=== PATIENT | female | born 1945 | race Caucasian/White ===

== ENCOUNTER 2018-04-07 16:41 | Observation (INO) ==
--- NOTE | 2018-04-07 17:46 | XR ---
EXAM DATE: 04/07/2018 5:42 PM EDT AGE/SEX: 72 years / Female INDICATIONS: Chest pain. CLINICAL DATA: This is the patient's initial encounter. Patient reports that signs and symptoms have been present for 1 day and indicates a pain score of 6/10. MEDICAL/SURGICAL HISTORY: Deep venous thrombosis. None. COMPARISON: No prior exams available for comparison. FINDINGS: Single AP view of the chest. The lungs are clear. Cardiomediastinal silhouette within nor mal limits. No evidence of pleural effusion or pneumothorax. CONCLUSION: No acute cardiopulmonary disease identified. Electronically signed by: Matthew Guerra MD 04/07/2018 5:45 PM EDT
[2018-04-07 18:00] LABS: Baso % (Auto) 0.5 % (0.0-2.0); Eos # (Auto) 0.1 th/mm3 (0.0-0.4); Hematocrit 39.5 % (35.0-46.0); Hemoglobin 13.7 gm/dL (11.6-15.3); Lymph % (Auto) 29.8 % (9.0-44.0); Mean Corpuscular HGB Conc 34.7 % (32.0-36.0); Mean Corpuscular Hemoglobin 31.5 pg (27.0-34.0); Mean Corpuscular Volume 90.8 fL (80.0-100.0); Mean Platelet Volume 10.1 fL (7.0-11.0); Mono # (Auto) 0.7 th/mm3 (0.0-0.9); Mono % (Auto) 10.9 % (0.0-8.0); Neut # (Auto) 3.8 th/mm3 (1.8-7.7); Neut % (Auto) 56.8 % (16.0-70.0); Platelet Count 214 th/mm3 (150-450); Red Blood Count 4.35 mil/mm3 (4.00-5.30); Red Cell Distribution Width 13.7 % (11.6-17.2); White Blood Count 6.6 th/mm3 (4.0-11.0)
--- NOTE | 2018-04-07 18:01 | ED ---
HPI General Chief complaint: Chest Pain Stated complaint: Patient states chest pain Time Seen by Provider: 04/07/18 17:13 Source: patient and RN notes reviewed Mode of arrival: ambulatory History of Present Illness HPI narrative: 72yF presenting with chest pain. The patient states that she was diagnosed with a RLE DVT earlier this week (also has a history of DVT previously ) and was started on Eliquis. She says that approximately an hour prior to arrival, she was at rest when she began to have substernal chest pain which she describes as "sharp", non-radiating, intermittent, constant, not made better or worse by anything, associated with dyspnea. Denies fever, cough, palpitations, nausea or vomiting. Family history significant for father with DVT/ PE and mother with CAD and "cardiac aneurysm". Related Data Home Medications Medication Instructions Recorded Confirmed Thyroid (T4:T3) mcg PO DAILY 04/07/18 apixaban [Eliquis] 5 mg PO BID 04/07/18 04/07/18 sulfamethoxazole-trimethoprim 1 tab PO BID 04/07/18 04/07/18 Allergies Allergy/AdvReac Type Severity Reaction Status Date / Time cephalexin AdvReac Severe NAUSEA/VOMI Verified 04/05/18 18:17 TING codeine AdvReac Severe NAUSEA/VOMI Verified 04/05/18 18:17 TING morphine AdvReac Severe NAUSEA/VOMI Verified 04/05/18 18:17 TING Review of Systems ROS: all other systems reviewed are negative Constitutional Denies fever(s) Eyes Denies blurry vision ENT Denies nasal congestion Cardiovascular Reports chest pain Respiratory Denies cough Gastrointestinal Denies nausea Genitourinary Denies dysuria Musculoskeletal Denies back pain Neurologic Denies confusion Psychiatric Denies confusion PMFSH History History Provided By: Patient Medical History Medical History Wears glasses (Acute) History of hypothyroidism (Acute) Hx of blood clots (Acute) Hypothyroid (Acute) Surgical History Surgical History Hx of foot surgery (Acute) History of lumpectomy of right breast (Acute) History of (Acute) Hx of cholecystectomy (Acute) Hx of lumbosacral spine surgery (Acute) Hx of cosmetic plastic surgery (Acute) Hx of blepharoplasty (Acute) Social History Social History Substance History: No History of Abuse Second Hand Smoke Exposure: No Smoking Status: Former smoker How Often Do You Have a Drink Containing Alcohol: Monthly or less Immunization History Tetanus Immunization: Unsure Hx Influenza Vaccine This Season: Yes Exam Const General: healthy appearing and no acute distress HENMT Head: normocephalic and atraumatic Face and sinus: normal facial exam Eyes General: appearance normal, both eyes and all related structures Pupils: PERRL Chest Chest: normal inspection of the chest Resp Effort & Inspection: normal respiratory effort Auscultation: no rhonchi and no wheezes Other: Lungs clear to auscultation bilaterally Cardio Rate: regular rate Rhythm: regular rhythm GI Inspection: non-distended Palpation: soft and nontender Skin General: no rashes or lesions noted Neuro General: alert, awake, oriented x3 and no focal motor deficits Psych Affect: normal affect Course Initial Documented Vital Signs Temperature 97.2 F L 04/07/18 16:45 Pulse Rate 85 04/07/18 16:45 Blood Pressure 195/81 H 04/07/18 16:45 Pulse Oximetry 98 04/07/18 16:45 Last Documented Vital Signs Temperature 97.7 F 04/08/18 08:00 Pulse Rate 63 04/08/18 08:00 Respiratory Rate 16 04/08/18 08:00 Blood Pressure 143/63 H 04/08/18 08:00 Pulse Oximetry 95 04/08/18 08:25 Sign Out Sign Out Data: Patient Sign Out occurred on 04/07/18 at 19:24. Patient's care was discussed, and care was transferred from Tiffany Gill DO to Nichelle Everett MD. Sign Out Comment: Pending CTA chest and remaining labs Last updated by Tiffany Gill DO at 04/07/18 19:23 Post-Handoff Eval: The patient's case was checked out to me by . Please see her complete history and physical. The patient presented with a recent history of being diagnosed with a DVT. The patient was placed on Eliquis on Sunday. The patient presents today with chest pain. During the course of the patient's emergency department visit, the patient's history, examination, and differential diagnosis were reviewed with the patient. The patient was placed on a security monitor with oximetry and frequent blood pressure monitoring. The patient had IV access obtained and blood work sent for analysis. The patient's diagnostic evaluation is remarkable for CBC with a normal white count and normal hemoglobin, monocytosis at 10.9, PT 10, PTT 28.2, chest x-ray shows no acute abnormality., Chemistry was unremarkable, initial troponin I is less than 0.02, BNP is 39. CTA to rule out PE showed a somewhat limited study due to the degree of opacification of the pulmonary arteries diffusely due to timing of contrast bolus, however no central PE was noted. Old granulomatous disease was noted. The patient was agreeable with the plan to proceed with admission to the chest pain center for rule out serial cardiac enzyme protocol followed by consideration of stress testing. Medical Decision Making [facility] Narrative Medical decision making narrative: Assessment: 72yF presenting with chest pain and dyspnea Plan: EKG and monitor Labs CXR CTA chest Medical Screen Exam Complete: Yes Emergency Medical Condition: Yes Differential Diagnosis Differential Diagnosis: Differential diagnosis includes, but is not limited to: PE, ACS, pleuritis, pneumonia, bronchitis Lab Data Result diagrams: 04/07/18 17:10 04/07/18 18:50 Lab Results 04/07/18 04/07/18 04/07/18 Range/Units 17:10 17:10 17:10 WBC 6.6 (4.0-11.0) th/mm3 RBC 4.35 (4.00-5.30) mil/mm3 Hgb 13.7 (11.6-15.3) gm/dL Hct 39.5 (35.0-46.0) % MCV 90.8 (80.0-100.0) fL MCH 31.5 (27.0-34.0) pg MCHC 34.7 (32.0-36.0) % RDW 13.7 (11.6-17.2) % Plt Count 214 (150-450) th/mm3 MPV 10.1 (7.0-11.0) fL Neut % (Auto) 56.8 (16.0-70.0) % Lymph % (Auto) 29.8 (9.0-44.0) % [place] % (Auto) 10.9 H (0.0-8.0) % Eos % (Auto) 2.0 (0.0-4.0) % Baso % (Auto) 0.5 (0.0-2.0) % Neut # (Auto) 3.8 (1.8-7.7) th/mm3 Lymph # (Auto) 2.0 (1.0-4.8) th/mm3 [place] # (Auto) 0.7 (0.0-0.9) th/mm3 Eos # (Auto) 0.1 (0.0-0.4) th/mm3 Baso # (Auto) 0.0 (0.0-0.2) th/mm3 WBC Differential . Differential Comment Auto diff final PT 10.0 (9.8-11.6) sec INR 1.0 Ratio APTT 28.2 (24.3-30.1) sec Puncture Site Patient Temperature O2 Saturation (90-100) % ABG pH (7.380-7.420) ABG pCO2 (38-42) mmHg ABG pO2 (61-120) mmHg ABG HCO3 (22-26) mmol/L ABG O2 Content (12.0-20.0) Vol % ABG Base Excess (-2-2) mmol/L ABG Methemoglobin (0-2) % [place] Test Hemoglobin (12.0-16.0) G/DL Carboxyhemoglobin (0-4) % Inspired O2 % Critical Value Sodium (136-145) meq/L Potassium (3.5-5.1) meq/L Chloride (98-107) meq/L Carbon Dioxide (21.0-32.0) meq/L Anion Gap (5-15) meq/L BUN (7-18) mg/dL Creatinine (0.50-1.00) mg/dL Estimated GFR (>89) mL/min Random Glucose (74-106) mg/dL Calcium (8.5-10.1) mg/dL Magnesium (1.5-2.5) mg/dL Total Bilirubin (0.2-1.0) mg/dL AST (15-37) U/L ALT (10-53) U/L Alkaline Phosphatase (45-117) U/L Total Creatine Kinase (26-192) U/L Troponin I (0.02-0.05) ng/mL B-Natriuretic Peptide 39 (0-100) pg/mL Total Protein (6.4-8.2) g/dL Albumin (3.4-5.0) g/dL 04/07/18 04/07/18 04/07/18 Range/Units 18:50 20:35 23:50 WBC (4.0-11.0) th/mm3 RBC (4.00-5.30) mil/mm3 Hgb (11.6-15.3) gm/dL Hct (35.0-46.0) % MCV (80.0-100.0) fL MCH (27.0-34.0) pg MCHC (32.0-36.0) % RDW (11.6-17.2) % Plt Count (150-450) th/mm3 MPV (7.0-11.0) fL Neut % (Auto) (16.0-70.0) % Lymph % (Auto) (9.0-44.0) % [place] % (Auto) (0.0-8.0) % Eos % (Auto) (0.0-4.0) % Baso % (Auto) (0.0-2.0) % Neut # (Auto) (1.8-7.7) th/mm3 Lymph # (Auto) (1.0-4.8) th/mm3 [place] # (Auto) (0.0-0.9) th/mm3 Eos # (Auto) (0.0-0.4) th/mm3 Baso # (Auto) (0.0-0.2) th/mm3 WBC Differential Differential Comment PT (9.8-11.6) sec INR Ratio APTT (24.3-30.1) sec Puncture Site Patient Temperature O2 Saturation (90-100) % ABG pH (7.380-7.420) ABG pCO2 (38-42) mmHg ABG pO2 (61-120) mmHg ABG HCO3 (22-26) mmol/L ABG O2 Content (12.0-20.0) Vol % ABG Base Excess (-2-2) mmol/L ABG Methemoglobin (0-2) % [place] Test Hemoglobin (12.0-16.0) G/DL Carboxyhemoglobin (0-4) % Inspired O2 % Critical Value Sodium 142 (136-145) meq/L Potassium 4.0 (3.5-5.1) meq/L Chloride 109 H (98-107) meq/L Carbon Dioxide 20.4 L (21.0-32.0) meq/L Anion Gap 13 (5-15) meq/L BUN 14 (7-18) mg/dL Creatinine 0.95 (0.50-1.00) mg/dL Estimated GFR 58 L (>89) mL/min Random Glucose 76 (74-106) mg/dL Calcium 9.0 (8.5-10.1) mg/dL Magnesium 2.0 (1.5-2.5) mg/dL Total Bilirubin 0.3 (0.2-1.0) mg/dL AST 21 (15-37) U/L ALT 24 (10-53) U/L Alkaline Phosphatase 94 (45-117) U/L Total Creatine Kinase 115 (26-192) U/L Troponin I Less than 0.02 L Less than 0.02 L Less than 0.02 L (0.02-0.05) ng/mL B-Natriuretic Peptide (0-100) pg/mL Total Protein 6.9 (6.4-8.2) g/dL Albumin 3.4 (3.4-5.0) g/dL 04/08/18 Range/Units 08:08 WBC (4.0-11.0) th/mm3 RBC (4.00-5.30) mil/mm3 Hgb (11.6-15.3) gm/dL Hct (35.0-46.0) % MCV (80.0-100.0) fL MCH (27.0-34.0) pg MCHC (32.0-36.0) % RDW (11.6-17.2) % Plt Count (150-450) th/mm3 MPV (7.0-11.0) fL Neut % (Auto) (16.0-70.0) % Lymph % (Auto) (9.0-44.0) % [place] % (Auto) (0.0-8.0) % Eos % (Auto) (0.0-4.0) % Baso % (Auto) (0.0-2.0) % Neut # (Auto) (1.8-7.7) th/mm3 Lymph # (Auto) (1.0-4.8) th/mm3 [place] # (Auto) (0.0-0.9) th/mm3 Eos # (Auto) (0.0-0.4) th/mm3 Baso # (Auto) (0.0-0.2) th/mm3 WBC Differential Differential Comment PT (9.8-11.6) sec INR Ratio APTT (24.3-30.1) sec Puncture Site Left radial Patient Temperature 98.6 O2 Saturation 89 L* (90-100) % ABG pH 7.41 (7.380-7.420) ABG pCO2 35 L (38-42) mmHg ABG pO2 60 L (61-120) mmHg ABG HCO3 22 (22-26) mmol/L ABG O2 Content 16.5 (12.0-20.0) Vol % ABG Base Excess -2.0 (-2-2) mmol/L ABG Methemoglobin 1.0 (0-2) % [place] Test Present Hemoglobin 13.1 (12.0-16.0) G/DL Carboxyhemoglobin 1.1 (0-4) % Inspired O2 21 % Critical Value Yes Sodium (136-145) meq/L Potassium (3.5-5.1) meq/L Chloride (98-107) meq/L Carbon Dioxide (21.0-32.0) meq/L Anion Gap (5-15) meq/L BUN (7-18) mg/dL Creatinine (0.50-1.00) mg/dL Estimated GFR (>89) mL/min Random Glucose (74-106) mg/dL Calcium (8.5-10.1) mg/dL Magnesium (1.5-2.5) mg/dL Total Bilirubin (0.2-1.0) mg/dL AST (15-37) U/L ALT (10-53) U/L Alkaline Phosphatase (45-117) U/L Total Creatine Kinase (26-192) U/L Troponin I (0.02-0.05) ng/mL B-Natriuretic Peptide (0-100) pg/mL Total Protein (6.4-8.2) g/dL Albumin (3.4-5.0) g/dL Imaging Data Radiologist's impression: Chest X-Ray 04/07/18 17:22 CONCLUSION: No acute cardiopulmonary disease identified. Chest CTA 04/07/18 17:23 CONCLUSION: 1. Examination somewhat limited due to degree of opacification of the pulmonary arteries diffusely due to timing of contrast bolus. No central pulmonary embolus identified. 2. Old granulomatous disease. Pulmonary Perfusion Imaging 04/08/18 00:00 CONCLUSION: 1. Negative examination. ECG Data Attestation: I personally reviewed and interpreted this ECG as follows: Interpretation: Rate: 78 BPM Rhythm: Sinus [place]: Left Intervals: Normal intervals, no blocks, QTc 414 ms Q waves: III, aVF T waves: Upright, no inversions ST segments: No elevations or depressions Impression: Non-specific EKG, no significant changes as compared to EKG from 07/26. Discharge Plan Discharge Disposition Patient Disposition: 01 Discharge Home Discharge Condition Condition: Stable Discharge Order Discharge Orders: Discharge Order (Routine); Ordered 04/08/18 Ordered By: Chad Abernathy Physicians Team ED Provider: Nichelle Everett Primary Care Provider: Petra Winslow Attending Provider: Howard Floyd ED Status: Left Department Discharge Information Discharge Date/Time: 04/08/18 02:28
[2018-04-07 18:08] LABS: Activated Partial Thrombo Time 28.2 sec (24.3-30.1)
[2018-04-07 20:15] LABS: Albumin 3.4 g/dL (3.4-5.0); Anion Gap 13 meq/L (5-15); Aspartate Aminotransferase 21 U/L (15-37); Blood Urea Nitrogen 14 mg/dL (7-18); Carbon Dioxide 20.4 meq/L (21.0-32.0); Chloride 109 meq/L (98-107); Glomerular Filtration Rate 58 mL/min (>89); Glucose,Random 76 mg/dL (74-106); Sodium 142 meq/L (136-145)
[2018-04-07 20:16] LABS: Alanine Aminotransferase 24 U/L (10-53)
[2018-04-07 20:20] LABS: Alkaline Phosphatase 94 U/L (45-117); Total Protein 6.9 g/dL (6.4-8.2)
--- NOTE | 2018-04-07 22:56 | CT ---
EXAM DATE: 04/07/2018 10:34 PM EDT AGE/SEX: 72 years / Female INDICATIONS: Left sided chest pain. History of emboli. CLINICAL DATA: This is the patient's initial encounter. Patient reports that signs and symptoms have been present for 1 day and indicates a pain score of 0/10. MEDICAL/SURGICAL HISTORY: Deep venous thrombosis. Cholecystectomy. Coronary artery stent. RADIATION DOSE: 22.97 CTDI (mGy) COMPARISON: No prior exams available for comparison. TECHNIQUE: Volumetric scanning was performed using a multi-row detector CT scanner during bolus infu lilia of 50 ml Omnipaque 350 (iohexol) nonionic water-soluble contrast as a single exam dose. The blessing a was post processed with a variety of visualization algorithms including full volume maximum intensi ty projection and sliding thin slab reformation. Using automated exposure control and adjustment of the mA and/or kV according to patient size, radiation dose was kept as low as reasonably achievable t o obtain optimal diagnostic quality images. DICOM format image data is available electronically for review and comparison. FINDINGS: Pulmonary Arteries: Pulmonary artery opacification is less than that of the pulmonary veins, limitin g the evaluation for pulmonary embolus in the segmental and subsegmental branches. No central pulmona ry artery filling defect identified. Lung: Mild atelectasis at lung bases. Calcified granuloma in the lateral left lower lung. Effusion: None. Mediastinum: Calcified hilar lymph nodes on the left. No enlarged mediastinal lymph nodes. Thoracic aorta diameter within normal limits. Other: The axilla is unremarkable. CONCLUSION: 1. Examination somewhat limited due to degree of opacification of the pulmonary arteries diffusely d ue to timing of contrast bolus. No central pulmonary embolus identified. 2. Old granulomatous disease. Electronically signed by: Matthew Guerra MD 04/07/2018 10:54 PM EDT
[2018-04-08 00:25] LABS: Creatine Kinase 115 U/L (26-192)
[2018-04-08 02:54] VITALS: RESP 16
[2018-04-08 08:15] VITALS: BP 143/63; PULSE 63; TEMP 97.7; O2SAT 95
[2018-04-08] MEDS ORDERED: Sod Chloride 0.9% Inj 1,000 ML IV.CONT SCH (08:15)
[2018-04-08 08:28] LABS: ABG PCO2 35 mmHg (38-42); ABG PO2 60 mmHg (61-120)
--- NOTE | 2018-04-08 09:12 | P.HPCA ---
History of Present Illness Primary Care Physician: Petra Winslow MD Chief Complaint: Chest pain History of Present Illness: This is a 72-year-old lady with recent diagnosis of right lower extremity DVT and placed on Eliquis 3 days ago with also history of 2016 having DVT and bilateral PEs after having knee surgery and complete Eliquis therapy for 3 months that presents to ED with plan of chest discomfort. Patient describes left-sided chest discomfort that began yesterday and was a sharp comfort first lasting 12 minutes and then turned into more of annoying type of discomfort lasted about 3 hours. Denies shortness of breath, nausea, diaphoresis. States the symptoms are not worsened with deep breath. Denies history of CAD. States she has an appointment with county treasurer Dr. Lorenzo this afternoon for preop clearance for right knee surgery that is scheduled 04/17/18. Currently denies chest discomfort denies calf pain or swelling. Recently diagnosed of right lower extremity DVT. Prior history of DVT and bilateral PEs in 2016. Hypothyroidism. Denies hypertension, hyperlipidemia, diabetes, and known CAD. She states that her father had an aneurysm but really not sure of other cardiac issues. Patient quit smoking 47 years ago. - Diagnosis (1) Chest pain (2) Right leg DVT (3) History of pulmonary embolus (PE) (4) History of DVT (deep vein thrombosis) (5) Hypothyroidism Review of Systems General: Patient denies fevers, chills, and recent travel. HEENT: Patient denies headache, sore throat, difficulty swallowing. Cardiovascular: Has the chest discomfort as mentioned above. Denies sensation of heart beating rapidly or irregularly. No syncope. Respiratory: Denies shortness of breath or inspirational chest discomfort. Denies coughing wheezing or hemoptysis. GI: Patient denies nausea, vomiting, diarrhea, abdominal pain, bloody stools. Musculoskeletal: Patient denies joint pain or edema. Denies calf pain or edema. Neurovascular: Patient denies numbness, tingling, weakness in extremities. Denies headache. Endocrine: Denies polyuria and polydipsia. Hematologic: Denies easy bruising. Skin: Denies rash or itching. PMFSH - History History Provided By: Patient - Medical History Medical History: Medical History (Last Reviewed 04/07/18 @ 18:04 by Tiffany Gill DO) Wears glasses (Acute) History of hypothyroidism (Acute) Hx of blood clots (Acute) Hypothyroid - Surgical History Surgical History: Surgical History (Last Reviewed 04/07/18 @ 18:04 by Tiffany Gill DO) Hx of foot surgery (Acute) History of lumpectomy of right breast (Acute) History of (Acute) Hx of cholecystectomy (Acute) Hx of lumbosacral spine surgery (Acute) Hx of cosmetic plastic surgery (Acute) Hx of blepharoplasty (Acute) - Tobacco History Second Hand Smoke Exposure: No Smoking Status: Former smoker - Alcohol History How Often Do You Have a Drink Containing Alcohol: Monthly or less - Substance Use History Substance History: No History of Abuse - Travel History Recent Travel in the [place] Within the Last 8 Weeks: No Recent Travel Out of the Country Within the Last 8 Weeks: No - Immunization History Tetanus Immunization: Unsure Hx Influenza Vaccine This Season: Yes Medications and Allergies Active Medications: Active Medications Sodium Chloride (Ns Inj) 1,000 mls @ 80 mls/hr IV.CONT .[id number] NINO Sodium Chloride (Ns Flush) 2 ml IV.FLUSH UNSCH PRN PRN Reason: FLUSH AFTER USING IV ACCESS Sodium Chloride (Ns Flush) 2 ml IV.FLUSH BID NINO Sodium Chloride (Ns Flush) 2 ml IV.FLUSH PRN PRN PRN Reason: FLUSH AFTER USING IV ACCESS Allergies Allergy/AdvReac Type Severity Reaction Status Date / Time cephalexin AdvReac Severe NAUSEA/VOMI Verified 04/05/18 18:17 TING codeine AdvReac Severe NAUSEA/VOMI Verified 04/05/18 18:17 TING morphine AdvReac Severe NAUSEA/VOMI Verified 04/05/18 18:17 TING Home Medications Medication Instructions Recorded Confirmed Type Thyroid (T4:T3) mcg PO DAILY 04/07/18 History apixaban [Eliquis] 5 mg PO BID 04/07/18 04/07/18 History sulfamethoxazole-trimethoprim 1 tab PO BID 04/07/18 04/07/18 History Exam Vital signs: Vital Signs 04/07/18 16:45 04/07/18 17:14 04/07/18 17:22 Temperature 97.2 F L 98.1 F Pulse Rate 85 76 Respiratory Rate 16 16 Blood Pressure 195/81 H 124/59 L 124/59 L Pulse Oximetry 98 100 100 04/07/18 19:04 09/16/18 23:24 04/08/18 01:05 Temperature 98.2 F Pulse Rate 70 69 88 Respiratory Rate 20 18 20 Blood Pressure 135/61 120/59 L 122/72 Pulse Oximetry 98 96 04/08/18 02:52 04/08/18 03:07 04/08/18 08:00 Temperature 98.0 F 97.7 F Pulse Rate 67 69 63 Respiratory Rate 16 16 Blood Pressure 149/65 H 143/63 H Pulse Oximetry 96 95 04/08/18 08:25 Temperature Pulse Rate Respiratory Rate Blood Pressure Pulse Oximetry 95 Intake & Output 04/07/18 04/08/18 04/08/18 18:59 06:59 18:59 Output Total 120 / 120 Balance -120 / -120 Weight 100 kg 95.254 kg Output: Urine 120 / 120 Other: # Voids 1 Weight On Admission 95.254 kg Narrative: GENERAL: This is a well-nourished, well-developed patient, in no apparent distress. Patient speaks in clear complete sentences. Patient is pleasant. HEENT: Head is atraumatic and normocephalic. Neck is supple without lymphadenopathy and trachea is midline. No JVD or carotid bruits. CARDIOVASCULAR: Regular rate and rhythm without murmurs, gallops, or rubs. RESPIRATORY: Clear to auscultation. Breath sounds equal bilaterally. No wheezes , rales, or rhonchi. Chest wall is nontender. No use of accessory muscles. GASTROINTESTINAL: Abdomen is nontender, nondistended. Abdomen soft. No obvious pulsatile mass or bruit. No CVA tenderness. Strong femoral pulses bilaterally. Normal bowel sounds in all quadrants. MUSCULOSKELETAL: Patient is moving upper and lower extremities freely. No calf tenderness or edema, no Homans sign. Strong pulses in upper and lower extremities. NEUROLOGICAL: Patient is alert and oriented. Cranial nerves 2-12 are grossly intact. No focal deficits and speech is clear. SKIN: No rash and turgor is normal. Results 04/07/18 17:10 04/07/18 18:50 Cardiac Enzymes 04/07/18 04/07/18 04/07/18 Range/Units 17:10 18:50 20:35 AST 21 (15-37) U/L Troponin I Less than 0.02 L Less than 0.02 L (0.02-0.05) ng/mL B-Natriuretic Peptide 39 (0-100) pg/mL 04/07/18 Range/Units 23:50 AST (15-37) U/L Troponin I Less than 0.02 L (0.02-0.05) ng/mL B-Natriuretic Peptide (0-100) pg/mL Coagulation 04/07/18 04/07/18 Range/Units 17:10 17:10 PT 10.0 (9.8-11.6) sec APTT 28.2 (24.3-30.1) sec B-Natriuretic Peptide 39 (0-100) pg/mL CBC 04/07/18 Range/Units 17:10 WBC 6.6 (4.0-11.0) th/mm3 RBC 4.35 (4.00-5.30) mil/mm3 Hgb 13.7 (11.6-15.3) gm/dL Hct 39.5 (35.0-46.0) % Plt Count 214 (150-450) th/mm3 Neut # (Auto) 3.8 (1.8-7.7) th/mm3 Lymph # (Auto) 2.0 (1.0-4.8) th/mm3 Bullock # (Auto) 0.7 (0.0-0.9) th/mm3 Eos # (Auto) 0.1 (0.0-0.4) th/mm3 Baso # (Auto) 0.0 (0.0-0.2) th/mm3 Comprehensive Metabolic Panel 04/07/18 Range/Units 18:50 Sodium 142 (136-145) meq/L Potassium 4.0 (3.5-5.1) meq/L Chloride 109 H (98-107) meq/L Carbon Dioxide 20.4 L (21.0-32.0) meq/L BUN 14 (7-18) mg/dL Creatinine 0.95 (0.50-1.00) mg/dL Calcium 9.0 (8.5-10.1) mg/dL AST 21 (15-37) U/L ALT 24 (10-53) U/L Alkaline Phosphatase 94 (45-117) U/L Total Protein 6.9 (6.4-8.2) g/dL Albumin 3.4 (3.4-5.0) g/dL Intake and Output 04/07/18 04/08/18 04/08/18 22:59 06:59 14:59 Output Total 120 / 120 Balance -120 / -120 Output: Urine 120 / 120 Other: # Voids 1 Weight 100 kg 95.254 kg Weight On Admission 95.254 kg EKG interpretations - EKG EKG shows: sinus rhythm (EKGs are sinus rhythm with nonspecific lateral ST changes. Poor R-wave progression.) Caprini VTE Risk Assessment Caprini VTE Risk Assessment: Moderate/High Risk (score >= 2) Caprini Risk Assessment Model: Point Value = 1 Point Value = 2 Point Value = 3 Point Value = 5 Age 41-60 Minor surgery BMI > 25 kg/m2 Swollen legs Varicose veins or History of unexplained or recurrent spontaneous Oral contraceptives or hormone replacement Sepsis (< 1 month) Serious lung disease, including pneumonia (< 1 month) Abnormal pulmonary function Acute myocardial infarction Congestive heart failure (< 1 month) History of inflammatory bowel disease Medical patient at bed rest Age 61-74 Arthroscopic surgery Major open surgery (> 45 min) Laparoscopic surgery (> 45 min) Malignancy Confined to bed (> 72 hours) Immobilizing plaster cast Central venous access Age >= 75 History of VTE Family history of VTE Factor V Leiden Prothrombin [id number] Lupus anticoagulant Anticardiolipin antibodies Elevated serum homocysteine Heparin-induced thrombocytopenia Other congenital or acquired thrombophilia Stroke (< 1 month) Elective arthroplasty Hip, pelvis, or leg fracture Acute spinal cord injury (< 1 month) Prophylaxis Regimen: Total Risk Factor Score Risk Level Prophylaxis Regimen 0-1 Low Early ambulation 2 Moderate Order ONE of the following: *Sequential Compression Device (SCD) *Heparin 5000 units SQ BID 3-4 Higher Order ONE of the following medications: *Heparin 5000 units SQ TID *Enoxaparin/Lovenox 40 mg SQ daily (WT < 150 kg, CrCl > 30 mL/min) *Enoxaparin/Lovenox 30 mg SQ daily (WT < 150 kg, CrCl > 10-29 mL/min) *Enoxaparin/Lovenox 30 mg SQ BID (WT < 150 kg, CrCl > 30 mL/min) AND/OR *Sequential Compression Device (SCD) 5 or more Highest Order ONE of the following medications: *Heparin 5000 units SQ TID (Preferred with Epidurals) *Enoxaparin/Lovenox 40 mg SQ daily (WT < 150 kg, CrCl > 30 mL/min) *Enoxaparin/Lovenox 30 mg SQ daily (WT < 150 kg, CrCl > 10-29 mL/min) *Enoxaparin/Lovenox 30 mg SQ BID (WT < 150 kg, CrCl > 30 mL/min) AND *Sequential Compression Device (SCD) Assessment and Plan - Assessment (1) Chest pain Code(s): R07.9 - Chest pain, unspecified Status: Acute (2) Right leg DVT Code(s): I82.401 - Acute embolism and thrombosis of unspecified deep veins of right lower extremity Status: Acute (3) History of pulmonary embolus (PE) Code(s): Z86.711 - Personal history of pulmonary embolism Status: Acute (4) History of DVT (deep vein thrombosis) Code(s): Z86.718 - Personal history of other venous thrombosis and embolism Status: Acute (5) Hypothyroidism Code(s): E03.9 - Hypothyroidism, unspecified Status: Acute - Plan * Chest pain: Patient had serial cardiac enzymes and EKGs for ruling out purposes. Does not sound cardiac at this time. More worrisome of pulmonary embolism. Patient has been on Eliquis for 3 days. CTA obtained in the ED was limited secondary to contrast timing per the radiology report, was able to exclude central pulmonary emboli. Patient has been seen by Dr. Luiz Tovar of cardiology in the chest pain center. Initially requested CTA to be repeated however technical sales support specialist for me that radiologist has requested to have a VQ scan done instead of the CTA. This will be ordered and plan pending the results of this. ABG has room air O2 saturation 89% and PO2 of 60. She given oxygen. Patient discussed with Dr. Luiz Tovar. Awaiting results of VQ scan. Continue Eliquis. Patient should follow back with county treasurer Dr. Lorenzo. Should have outpatient echo performed. * Recent diagnosis of right lower extremity DVT: Continue Eliquis. Patient is stable at this time. She is agreeable to this plan. VQ scan was read by radiologist as negative examination. Patient ambulated around the F pod for 2 times on room air and saturations on pulse oximetry stayed steady at 96%. This information discussed with Dr. Luiz Tovar and patient will be discharged home at this time with instructions to follow-up with her PCP and follow-up with county treasurer for outpatient 2D echo. Return to ED for interval issues. H&P: Quality - VTE Deep Vein Thrombosis/Pulmonary Embolism Present on Admission: Yes
--- NOTE | 2018-04-08 11:56 | NM ---
EXAM DATE: 04/08/2018 11:46 AM EDT AGE/SEX: 72 years / Female INDICATIONS: Chest pain. CLINICAL DATA: This is the patient's initial encounter. Patient reports that signs and symptoms have been present for 1 day and indicates a pain score of 2/10. MEDICAL/SURGICAL HISTORY: Hypothyroidism. Carcinoma, breast. section. Mastectomy, ri ght. Cholecystectomy. COMPARISON: No prior exams available for comparison. DOSE: 8.1 mCi Tc99m MAA IV 1.3 mCi Tc99m DTPA aerosol TECHNIQUE: Following five minutes of tidal breathing of DTPA aerosol, planar images of the lungs wer e performed in eight projections. The patient was then injected with MAA, and eight-view perfusion s can was performed. FINDINGS: There is a homogeneous pattern of aerosol delivery to the periphery of both lungs. No focal ventilat ory defects are seen. The perfusion lung scan demonstrates a homogenous pattern of uptake in both lungs. No segmental or s ubsegmental defects are seen. CONCLUSION: 1. Negative examination. Electronically signed by: Dell Garces MD 04/08/2018 11:55 AM EDT
--- NOTE | 2018-04-09 16:56 | ECG ---
Date Performed: 04/07/2018 Time Performed: 17:01:08 PTAGE: 72 years EKG: Sinus rhythm LEFT VENTRICULAR HYPERTROPHY AND ST-T CHANGE POSSIBLE ANTERIOR MYOCARDIAL INFARCTION ABNORMAL ECG Co mpared to PREVIOUS TRACING , new possible [place] PREVIOUS TRACIN07/26/2010 16.15 DOCTOR: Annette Aguirre Interpretating Date/Time 04/09/2018 16:55:07
--- NOTE | 2018-04-09 16:56 | ECG ---
Date Performed: 04/07/2018 Time Performed: 20:40:52 PTAGE: 72 years EKG: Sinus rhythm LOW QRS VOLTAGE IN PRECORDIAL LEADS MINIMAL ST DEPRESSION BORDERLINE ECG Since PREVIOUS TRACING , no significant change noted PREVIOUS TRACIN04/07/2018 17.01 DOCTOR: Annette Aguirre Interpretating Date/Time 04/09/2018 16:55:36
--- NOTE | 2018-04-09 16:57 | ECG ---
Date Performed: 04/07/2018 Time Performed: 23:53:29 PTAGE: 72 years EKG: SINUS BRADYCARDIA LOW QRS VOLTAGE IN PRECORDIAL LEADS MODERATE ST DEPRESSION ABNORMAL ECG S devante PREVIOUS TRACING , no significant change noted PREVIOUS TRACIN04/07/2018 20.40 DOCTOR: Annette Aguirre Interpretating Date/Time 04/09/2018 16:55:50
== END 2018-04-08 13:36 | disposition home or self-care (01) ==
LOC: NEDA 16:41 → NEPE 16:41 → NEDA 04-08 02:28 → NEPFCDU 04-08 02:34

== ENCOUNTER 2018-04-17 08:42 | Inpatient (IN) ==
[2018-04-17] MEDS ORDERED: Sodium Chlor 0.9% Inj 250 ML ONE (09:28)
[2018-04-17] MEDS ORDERED: Dexamethasone Inj 20 MG/5 ML Vial ONE (09:28)
[2018-04-17] MEDS ORDERED: Bupivacaine Liposomal PF 1.3% Inj 20 ML Vial ONE (09:38)
[2018-04-17] MEDS ORDERED: Chlorhexidine Gluconate 2% 1 Pack (2 Cloths) TOPICAL ONE (09:39)
[2018-04-17] MEDS ORDERED: Metoprolol Tartrate 25 MG Tablet PO ONE (09:39)
[2018-04-17] MEDS ORDERED: Dexamethasone Inj 20 MG/5 ML Vial IV.PUSH ONE (09:40)
[2018-04-17] MEDS ORDERED: ceFAZolin 2 GM Premix Inj 2 GM/50 ML PIGGYBACK IV.SIG ONE (09:42)
[2018-04-17] MEDS ORDERED: Chlorhexidine 4% Topical 120 APPLIC/120 ML Bottle TOPICAL SCH (09:45)
[2018-04-17] MEDS ORDERED: Sodium Chlor 0.9% Inj 73.07 ML, Ropivacaine 0.5% PF Inj 24.63 ML, Ketorolac Inj 30 MG, ... P-ARTICULR SCH ×5 (09:45)
[2018-04-17] MEDS ORDERED: Sodium Chlor 0.9% Inj 500 ML IV.SIG SCH (10:00)
[2018-04-17] MEDS ORDERED: ceFAZolin 2 GM Premix Inj 2 GM/50 ML PIGGYBACK IV.SIG SCH (10:00)
[2018-04-17] MEDS ORDERED: SODIUM CHLOR 0.9% IV.SIG SCH (10:00)
[2018-04-17] MEDS ORDERED: TRANEXAMIC ACID IV.SIG SCH (10:00)
[2018-04-17] MEDS ORDERED: Vancomycin Inj 1,000 MG in Sodium Chlor 0.9% Inj 250 ML IV.SIG SCH (10:00)
[2018-04-17] MEDS ORDERED: fentaNYL Citrate Inj 250 MCG/5 ML Ampul ONE (10:43)
[2018-04-17] MEDS ORDERED: Lidocaine PF 1% Inj 5 ML Syringe OTHER ONE (11:45)
[2018-04-17] MEDS ORDERED: Bisacodyl 10 MG Supp RECTAL PRN (13:22)
[2018-04-17] MEDS ORDERED: Post-op Orders (for Pharmacy) OTHER STA (13:22)
[2018-04-17] MEDS ORDERED: HYDROmorphone PF Inj 1 MG/ML Ampul IV.PUSH PRN (13:22)
[2018-04-17] MEDS ORDERED: Aluminum/Magnesium/Simethacone Susp 30 ML UDC PO PRN (13:22)
--- NOTE | 2018-04-17 13:27 | P.OP ---
Preoperative Diagnosis: Right knee severe arthritis Postoperative Diagnosis: Same Date of procedure: 04/17/18 Procedure: Right total knee arthroplasty Anesthesia: [facility], [facility] Surgeon: Josue Jones MD Agricultural Education Instructor: JULISA Barreto The surgical procedure was assisted by my Advanced Registered Nurse Practitioner. My BUSINESS SYSTEMS ADMINISTRATOR presence was necessary throughout this case for the manipulation and positioning of the surgical extremity. My BUSINESS SYSTEMS ADMINISTRATOR was assisting me throughout the duration of this procedure. The skill set of an Advance Registered Nurse Practitioner was medically necessary to complete this procedure. During the surgical case, the surgical services asst was working at the back table and the Advance Registered Nurse Practitioner was directly assisting me. Operation and Findings: IMPLANTS: DePuy Attune: Patella: size 32. Femur, posterior stabilized size 6 narrow. Tibia, rotating platform size 5. Tibial insert, rotating platform, posterior stabilized size 6 mm thickness. ESTIMATED BLOOD LOSS: 100 cc TOURNIQUET TIME: 35 minutes at 250 mmHg pressure. JUSTIFICATION FOR PROCEDURE: The patient has end-stage osteoarthritis to the knee. There is an attached conservative measures pathway form in the chart that describes the nonoperative measures that were undertaken prior to consideration of surgical management. The patient understood the risks and benefits of surgical management. See my office notes for further details PROCEDURE: The patient was brought back to the operative theatre. Adequate anesthesia was obtained. The patient received intravenous vancomycin and Ancef. Note that the anesthesiologist told me that she did not have any reaction with the Ancef. The lower extremity was prepped and draped in the usual sterile fashion.The leg was exsanguinated, the tourniquet was raised. A standard anterior incision was performed followed by medial parapatellar arthrotomy was performed. End-stage arthritis was identified. Osteotomy of the patella was performed. We drilled holes for the patella. We trialed the patella component. We placed an intramedullary guide into the distal femur. We ultimately resected 14 mm off of the distal femur in 5 degrees of valgus. The remnants of the ACL and PCL were resected. Osteotomy of the proximal tibia was performed, resecting 5 mm off of the medial side. This was done with 3 degrees of posterior slope using an extramedullary guide. The distal end of the guide was placed in the mid aspect of the ankle. The femur was sized, and four chamfer cuts were completed in 3 of external rotation. We then cut the central box in the distal femur to replace the PCL. We resected the remnants of the menisci and removed osteophytes off of the femur and tibia. We then trialed the knee. We punched the tibia for the keel, and then used standard technique to cement in components. Excess cement was removed. We trialed the knee again and the final polyethylene thickness was chosen to provide extension to 0 degrees, and flexion of 140 degrees to gravity. The ligaments were appropriately balanced. Lateral release was necessary to obtain excellent patellofemoral tracking. The tourniquet was released and adequate hemostasis was obtained. An intra- articular injection of a ropivacaine cocktail was injected. The posterior knee was inspected for excess cement, which was removed. The final polyethylene was put into position after thorough irrigation. We then closed deep fascia with a #2 Stratafix followed by skin with 2-0 Vicryl followed by Dermabond dressing. Postop plan is to weight-bear as tolerated. DVT prophylaxis will be performed with SCDs, VIKTORIYA hose, early mobilization, and Lovenox for 4 weeks and then after that is completed aspirin for 4 weeks. This was confirmed with water pump servicer due to history of chronic DVT.
[2018-04-17] MEDS: Sod Chloride 0.9% Inj 1,000 ML IV.CONT SCH (14:00)
--- NOTE | 2018-04-17 14:08 | P.DCO ---
- Physical Therapy Physical Therapy: Gait training, Transfer training, bed to chair Knee: Total knee Right Lower Extremity Weight Bearing: Weight bearing as tolerated Right Lower Extremity Range of Motion: Active ROM - Nursing Nursing: Hu hester Dressing changes: Do not change dressing Additional instructions: First dressing change in the office - Certification Need for Home Health services: I have seen patient Francoise Kc on 04/17/18. My clinical findings support the need for the requested home health care services because: Need for Home Health Services: Limited ability to care for self, High risk of falls Homebound Certification: I certify that my clinical findings support that this patient is homebound because: Homebound Certification: Post-op weakness, Unsteady gait/balance
[2018-04-17] MEDS ORDERED: *Meperidine Inj 25 MG/ML Vial PERIprocedural Use ONLY ONE ×2 (14:16→15:28)
--- NOTE | 2018-04-17 14:23 | XR ---
EXAM DATE: 04/17/2018 1:21 PM EDT AGE/SEX: 72 years / Female INDICATIONS: Post op total right knee arthroplasty. CLINICAL DATA: This is the patient's initial encounter. Patient reports that signs and symptoms have been present for 1 day and indicates a pain score of Nonresponsive. MEDICAL/SURGICAL HISTORY: None. None. COMPARISON: No prior exams available for comparison. FINDINGS: Right knee arthroplasty components are in anatomic alignment and well positioned. No significant bony fracture. Immediate postoperative soft tissue changes are noted. CONCLUSION: 1. Status post right knee arthroplasty in anatomic alignment without acute fracture. Electronically signed by: Chas Price MD 04/17/2018 2:22 PM EDT
[2018-04-17] MEDS ORDERED: TRANEXAMIC ACID IV.SIG ONE (14:50)
[2018-04-17] MEDS ORDERED: SODIUM CHLOR 0.9% IV.SIG ONE (14:50)
[2018-04-17] MEDS: Multivitamin/Minerals Therapeutic Tablet PO SCH (20:24)
[2018-04-17] MEDS: Senna/Docusate Sodium 8.6/50 MG Tablet PO SCH (20:24)
[2018-04-17] MEDS ORDERED: Zolpidem Tartrate 5 MG Tablet PO PRN (21:00)
[2018-04-18] MEDS: Sod Chloride 0.9% Inj 1,000 ML IV.CONT SCH ×2 (04:02→13:44)
[2018-04-18 06:53] LABS: Hematocrit 30.9 % (35.0-46.0); Hemoglobin 10.7 gm/dL (11.6-15.3)
--- NOTE | 2018-04-18 07:39 | P.PNOP ---
Subjective Interval history: Patient is resting comfortably in bed in no acute distress. The patient reports minimal pain to the right knee. The patient states she has been ambulatory. Physical Exam Vital signs: Vital Signs 04/17/18 09:35 04/17/18 09:41 04/17/18 13:44 Temperature 98.3 F 97.6 F Pulse Rate 63 61 85 Respiratory Rate 20 17 Blood Pressure 131/59 L 145/67 H Pulse Oximetry 97 98 04/17/18 13:45 04/17/18 14:00 04/17/18 14:15 Temperature Pulse Rate 83 83 70 Respiratory Rate 16 9 L 11 L Blood Pressure 139/63 150/70 H 142/69 H Pulse Oximetry 97 97 97 04/17/18 14:30 04/17/18 14:45 04/17/18 15:00 Temperature Pulse Rate 69 67 68 Respiratory Rate 11 L 12 13 Blood Pressure 143/64 H 140/63 136/63 Pulse Oximetry 98 97 96 04/17/18 15:15 04/17/18 15:30 04/17/18 15:45 Temperature 97.2 F L Pulse Rate 67 66 67 Respiratory Rate 11 L 15 15 Blood Pressure 138/65 162/70 H 152/70 H Pulse Oximetry 93 L 95 95 04/17/18 16:00 04/17/18 20:00 04/17/18 22:58 Temperature 97.5 F L 97.5 F L Pulse Rate 63 77 Respiratory Rate 16 17 17 Blood Pressure 143/66 H 128/59 L Pulse Oximetry 96 95 04/18/18 00:00 04/18/18 01:11 04/18/18 04:00 Temperature 98.5 F 97.9 F Pulse Rate 66 65 Respiratory Rate 17 17 17 Blood Pressure 118/69 131/60 Pulse Oximetry 98 96 04/18/18 07:26 Temperature Pulse Rate Respiratory Rate 18 Blood Pressure Pulse Oximetry Intake & Output 04/17/18 04/18/18 04/18/18 18:59 06:59 18:59 Intake Total 2489.65 / 2489.65 100 / 100 100 / 100 Output Total 100 / 100 Balance 2389.65 / 2389.65 100 / 100 100 / 100 Weight 96.5 kg 100.3 kg Intake: IV 1509.65 / 1509.65 100 / 100 100 / 100 LR 1000 mL Inj 1,000 ML @ 30 1000 / 1000 mls/hr IV.SIG .Q24H NINO Rx#: [id number] Cyklokapron Inj 965 MG In NS 109.65 / 109.65 Inj 100 ML @ 200 mls/hr IV.SIG ONCE NINO Rx#:[id number] Vancomycin Inj 1,000 MG In NS 250 / 250 Inj 250 ML @ 250 mls/hr IV.SIG RECOVERY ASSISTANT NINO Rx#:[id number] Ancef 2 GM Premix Inj 2 gm In 50 / 50 50 ml @ 100 mls/hr IV.SIG RECOVERY ASSISTANT NINO Rx#:[id number] Ancef Inj 1,000 MG In NS Inj 100 / 100 100 / 100 100 / 100 100 ML @ 200 mls/hr IV.SIG Q6H NINO Rx#:[id number] Oral 780 / 780 Anesthesia Amount 200 / 200 Output: Estimated Blood Loss 100 / 100 Other: # Voids 2 5 Date of Last Bowel Movement 04/17/18 04/17/18 04/17/18 Weight On Admission 96.5 kg Narrative: The patient's dressing is clean, dry, and intact. EHL/TA/G are intact. 2+ pedal pulse. The patient's calf is soft and nontender. Sensation is intact to light touch distally. Knee immobilizer is in place. Results - Labs CBC & Chem 7: 04/18/18 05:59 Laboratory Results - last 24 hr 04/17/18 04/18/18 09:20 05:59 Hgb 10.7 L Hct 30.9 L Blood Type O Positive Antibody Screen Negative - Imaging Impressions Knee X-Ray 04/17/18 13:21 CONCLUSION: 1. Status post right knee arthroplasty in anatomic alignment without acute fracture. - Procedures Right total knee arthroplasty Assessment and Plan - Problem List (1) Status post total knee replacement, right Code(s): Z96.651 - Presence of right artificial knee joint Status: Acute (2) Primary localized osteoarthritis of right knee Code(s): M17.11 - Unilateral primary osteoarthritis, right knee Status: Acute - Assessment and Plan POD #1: [Right] total knee arthroplasty 1. Weightbearing as tolerated on [right] lower extremity. 2. Lovenox for 4 weeks followed by aspirin for 4 weeks for DVT prophylaxis secondary to her history of blood clots. 3. Ice as needed for swelling. 4. Stable per ortho for discharge to [facility] on Sunday or Sunday. 5. The patient will follow up with Dr. Jones and/or JULISA Lazaro as previously scheduled.
[2018-04-18] MEDS ORDERED: Dexamethasone Inj 20 MG/5 ML Vial IV.PUSH ONE (08:00)
[2018-04-18] MEDS: Senna/Docusate Sodium 8.6/50 MG Tablet PO SCH ×2 (08:34→20:10)
[2018-04-18] MEDS: Multivitamin/Minerals Therapeutic Tablet PO SCH ×2 (08:34→20:10)
[2018-04-18] MEDS: Enoxaparin Inj 40 MG/0.4 ML Syringe SQ SCH (12:01)
[2018-04-19] MEDS: Sod Chloride 0.9% Inj 1,000 ML IV.CONT SCH (05:21)
[2018-04-19 05:56] LABS: Hematocrit 29.5 % (35.0-46.0); Hemoglobin 10.1 gm/dL (11.6-15.3)
[2018-04-19] MEDS: Multivitamin/Minerals Therapeutic Tablet PO SCH (09:04)
[2018-04-19] MEDS: Senna/Docusate Sodium 8.6/50 MG Tablet PO SCH (09:04)
--- NOTE | 2018-04-19 10:57 | P.PNOP ---
Subjective Interval history: The patient is out of bed in chair. The patient states she is only having mild pain to the right knee. The patient states she has been ambulatory. Physical Exam Vital signs: Vital Signs 04/18/18 12:00 04/18/18 12:19 04/18/18 16:00 Temperature 98.6 F 97.4 F L Pulse Rate 67 66 Respiratory Rate 18 18 20 Blood Pressure 121/56 L 132/60 Pulse Oximetry 95 93 L 04/18/18 17:18 04/18/18 20:00 04/19/18 00:00 Temperature 98.7 F 97.8 F Pulse Rate 65 69 Respiratory Rate 18 17 19 Blood Pressure 158/73 H 147/64 H Pulse Oximetry 95 97 04/19/18 04:00 04/19/18 08:00 04/19/18 09:34 Temperature 98.0 F Pulse Rate 67 Respiratory Rate 17 14 18 Blood Pressure 136/63 Pulse Oximetry 92 L Intake & Output 04/18/18 04/19/18 04/19/18 18:59 06:59 18:59 Intake Total 1600 / 1600 Balance 1600 / 1600 Weight 100.1 kg Intake: IV 1100 / 1100 NS Inj 1,000 ML @ 80 mls/hr IV. 1000 / 1000 CONT .[id number] NINO Rx#:[id number] Ancef Inj 1,000 MG In NS Inj 100 / 100 100 ML @ 200 mls/hr IV.SIG Q6H NINO Rx#:[id number] Oral 500 / 500 Other: # Voids 4 5 Date of Last Bowel Movement 04/17/18 04/17/18 04/17/18 Narrative: The patient's dressing is clean, dry, and intact. EHL/TA/G are intact. 2+ pedal pulse. The patient's calf is soft and nontender. Sensation is intact to light touch distally. Results - Labs CBC & Chem 7: 04/19/18 05:02 Laboratory Results - last 24 hr 04/19/18 05:02 Hgb 10.1 L Hct 29.5 L - Procedures Right total knee arthroplasty Assessment and Plan - Problem List (1) Status post total knee replacement, right Code(s): Z96.651 - Presence of right artificial knee joint Status: Acute (2) Primary localized osteoarthritis of right knee Code(s): M17.11 - Unilateral primary osteoarthritis, right knee Status: Acute - Assessment and Plan POD #2: [Right] total knee arthroplasty 1. Weightbearing as tolerated on [right] lower extremity. 2. Lovenox for 4 weeks followed by aspirin for 4 weeks for DVT prophylaxis secondary to her history of blood clots. 3. Ice as needed for swelling. 4. Stable per ortho for discharge to [facility]. 5. The patient will follow up with Dr. Jones and/or JULISA Lazaro as previously scheduled.
--- NOTE | 2018-04-19 11:00 | P.DS ---
Date of admission: 04/17/18 13:21 Primary care physician: Petra Winslow MD Attending physician on discharge: Josue Jones Anticipated date of discharge: 04/19/18 Brief History from admission: The patient was admitted to the hospital for severe osteoarthritis of the right knee to have a right total knee arthroplasty. DS: Diagnosis - Discharge Diagnosis (1) Status post total knee replacement, right Status: Acute (2) Primary localized osteoarthritis of right knee Status: Acute DS: Medications - Discharge Medications Prescriptions: aspirin 325 mg PO DAILY 30 Days #30 tab enoxaparin [Lovenox] 40 mg SUB-Q DAILY 30 Days #30 units hydrocodone-acetaminophen [Fence] 1 - 2 tab PO Q4-6H #50 tab DS: Summary Hospital Course: The patient was admitted to the hospital for severe osteoarthritis of the [right ] knee to have a [right] total knee arthroplasty. The patient's surgery went well with no complication. The patient is on a [regular] diet. The patient's DVT prophylaxis includes use of [Lovenox for 4 weeks followed by aspirin for 4 weeks]. The patient is weightbearing as tolerated. The patient was discharged [to [facility]] and will follow up in the office with Dr. Jones and/or JULISA Lazaro as previously scheduled. - Time Spent with Patient Total time spent providing and/or coordinating discharge services: Greater than 30 minutes - Quality: VTE Deep Vein Thrombosis/Pulmonary Embolism Present on Admission: No Exam Vital signs: Vital Signs 04/18/18 12:00 04/18/18 12:19 04/18/18 16:00 Temperature 98.6 F 97.4 F L Pulse Rate 67 66 Respiratory Rate 18 18 20 Blood Pressure 121/56 L 132/60 Pulse Oximetry 95 93 L 04/18/18 17:18 04/18/18 20:00 04/19/18 00:00 Temperature 98.7 F 97.8 F Pulse Rate 65 69 Respiratory Rate 18 17 19 Blood Pressure 158/73 H 147/64 H Pulse Oximetry 95 97 04/19/18 04:00 04/19/18 08:00 04/19/18 09:34 Temperature 98.0 F Pulse Rate 67 Respiratory Rate 17 14 18 Blood Pressure 136/63 Pulse Oximetry 92 L Intake & Output 04/18/18 04/19/18 04/19/18 18:59 06:59 18:59 Intake Total 1600 / 1600 Balance 1600 / 1600 Weight 100.1 kg Intake: IV 1100 / 1100 NS Inj 1,000 ML @ 80 mls/hr IV. 1000 / 1000 CONT .[id number] NINO Rx#:[id number] Ancef Inj 1,000 MG In NS Inj 100 / 100 100 ML @ 200 mls/hr IV.SIG Q6H NINO Rx#:[id number] Oral 500 / 500 Other: # Voids 4 5 Date of Last Bowel Movement 04/17/18 04/17/18 04/17/18 Narrative: See last progress note for physical examination Results Procedures completed during hospitalization: Right total knee arthroplasty Labs on day of discharge: Labs from last 24 hours 04/19/18 05:02 Hgb 10.1 L Hct 29.5 L - Impressions ITS Impressions Knee X-Ray 04/17/18 13:21 CONCLUSION: 1. Status post right knee arthroplasty in anatomic alignment without acute fracture. Discharge Plan - Discharge Disposition Patient Disposition: Discharge to SNF - Discharge Condition Condition: Stable - Discharge Order Discharge Orders: Discharge Order (Routine); Ordered 04/17/18 Ordered By: Dell Avila - Discharge Details Anticipated Discharge Date: 04/19/18 - Physicians Team Primary Care Provider: Petra Winslow Attending Provider: Josue Jones Other Providers: Francine Morales - Rxs /Orders / Referrals /Forms Prescriptions: New aspirin 325 mg Tablet 325 mg PO DAILY 30 Days Qty: 30 RF: 0 enoxaparin [Lovenox] 40 mg/0.4 mL Syringe 40 mg SUB-Q DAILY 30 Days Qty: 30 RF: 0 hydrocodone-acetaminophen [[place]ence] 5-325 mg Tablet 1 - 2 tab PO Q4-6H Qty: 50 RF: 0 Continue Thyroid (T4:T3) mcg PO DAILY Ambulatory Orders / Order Sets / DME: Adjustable Commode 3-in-1 (1 each) (Routine) Location: Determined by Patient Ordered By: Dell Avila CPM - Continuous Passive Motion Machine (1 each) (Routine) Location: Determined by Patient Ordered By: Dell Avila Walker With Front Wheels (1 each) (Routine) Location: Determined by Patient Ordered By: Dell Avila Referrals: Josue Jones MD [Physician] - See Instructions (F/U in the office as previously scheduled with Dr. Jones and/or JULISA Lazaro Your appointment has been scheduled for Sunday05/02/18 at 3:10PM. If you cannot make this appointment, please call the office to reschedule ) Petra Winslow MD [Primary Care Provider] - See Instructions - Discharge Instructions Patient Printed Instructions: How to Choose and Use a Walker (GEN), Knee Immobilizer (DC), Continuous Passive Motion Machine (DC), Knee Replacement (DC) Additional Instructions: REGULAR DIET TOLERATED WEIGHT BEARING TOLERATED SHOWER ONLY NO DRIVING DO NOT CHANGE DRESSING KEEP DRESSING CLEAN, DRY, AND INTACT TAKE MEDICATION TOLERATED FOLLOW UP WITH MD INSTRUCTED
[2018-04-19 12:19] VITALS: BP 132/60; PULSE 72; TEMP 97.3; O2SAT 94
[2018-04-19] MEDS: Enoxaparin Inj 40 MG/0.4 ML Syringe SQ SCH (12:30)
[2018-04-19 15:46] VITALS: RESP 18
== END 2018-04-19 16:37 ==
LOC: HSDC 08:42 → EDSTATUS 11:30 → HSDI 13:21 → N06 16:42
PROVIDERS: ADMIT Orthopaedic Surgery; ATTEND Orthopaedic Surgery

== ENCOUNTER 2018-07-31 05:46 | Inpatient (IN) ==
[2018-07-31] MEDS ORDERED: Dexamethasone Inj 20 MG/5 ML Vial IV.PUSH ONE (06:11)
[2018-07-31] MEDS ORDERED: Chlorhexidine Gluconate 2% 1 Pack (2 Cloths) TOPICAL ONE (06:14)
[2018-07-31] MEDS ORDERED: Metoprolol Tartrate 25 MG Tablet PO ONE (06:14)
[2018-07-31] MEDS ORDERED: Chlorhexidine 4% Topical 120 APPLIC/120 ML Bottle TOPICAL SCH (06:15)
[2018-07-31] MEDS ORDERED: Sodium Chlor 0.9% Inj 500 ML IV.SIG SCH (07:00)
[2018-07-31] MEDS ORDERED: Vancomycin Inj 1,000 MG in Sodium Chlor 0.9% Inj 250 ML IV.SIG SCH (07:00)
[2018-07-31] MEDS ORDERED: ceFAZolin 2 GM Premix Inj 2 GM/50 ML PIGGYBACK IV.SIG SCH (07:00)
--- NOTE | 2018-07-31 07:12 | P.DCO ---
- Physical Therapy Physical Therapy: Gait training, Transfer training, bed to chair Knee: Total knee Left Lower Extremity Weight Bearing: Weight bearing as tolerated Left Lower Extremity Range of Motion: Active ROM - Nursing Nursing: Hu hester Dressing changes: Do not change dressing - Certification Need for Home Health services: I have seen patient Francoise Kc on 07/31/18. My clinical findings support the need for the requested home health care services because: Need for Home Health Services: Limited ability to care for self, High risk of falls Homebound Certification: I certify that my clinical findings support that this patient is homebound because: Homebound Certification: Post-op weakness, Unsteady gait/balance
[2018-07-31] MEDS ORDERED: Ropivacaine 0.5% PF Inj 20 ML Vial ONE (07:41)
[2018-07-31] MEDS ORDERED: Sodium Chlor 0.9% Inj 73.07 ML, Ropivacaine 0.5% PF Inj 24.63 ML, Ketorolac Inj 30 MG, ... P-ARTICULR SCH ×5 (08:30)
[2018-07-31] MEDS ORDERED: TRANEXAMIC ACID IV.SIG SCH ×2 (08:30→11:30)
[2018-07-31] MEDS ORDERED: SODIUM CHLOR 0.9% IV.SIG SCH ×2 (08:30→11:30)
[2018-07-31] MEDS ORDERED: Bisacodyl 10 MG Supp RECTAL PRN (10:24)
[2018-07-31] MEDS ORDERED: Post-op Orders (for Pharmacy) OTHER STA (10:24)
[2018-07-31] MEDS ORDERED: Morphine Inj 4 MG/ML Vial IV.PUSH PRN (10:24)
[2018-07-31] MEDS ORDERED: Aluminum/Magnesium/Simethacone Susp 30 ML UDC PO PRN (10:24)
--- NOTE | 2018-07-31 10:32 | P.OP ---
- Preoperative Diagnosis (1) Primary localized osteoarthritis of left knee - Postoperative Diagnosis (1) Primary localized osteoarthritis of left knee Date of procedure: 07/31/18 Procedure: Left total knee arthroplasty Anesthesia: GETA, [facility] Surgeon: Josue Jones MD Acid Regenerator: JULISA Barreto The surgical procedure was assisted by my Advanced Registered Nurse Practitioner. My ANESTHETIST presence was necessary throughout this case for the manipulation and positioning of the surgical extremity. My ANESTHETIST was assisting me throughout the duration of this procedure. The skill set of an Advance Registered Nurse Practitioner was medically necessary to complete this procedure. During the surgical case, the certified surgical technician was working at the back table and the Advance Registered Nurse Practitioner was directly assisting me. Operation and Findings: IMPLANTS: DePuy Attune: Patella: size 32. Femur, posterior stabilized size 6 narrow. Tibia, rotating platform size 5. Tibial insert, rotating platform, posterior stabilized size 6 mm thickness. ESTIMATED BLOOD LOSS: 100 cc TOURNIQUET TIME: 32 minutes at 250 mmHg pressure. JUSTIFICATION FOR PROCEDURE: The patient has end-stage osteoarthritis to the knee. There is an attached conservative measures pathway form in the chart that describes the nonoperative measures that were undertaken prior to consideration of surgical management. The patient understood the risks and benefits of surgical management. See my office notes for further details PROCEDURE: The patient was brought back to the operative theatre. Adequate anesthesia was obtained. The patient received intravenous vancomycin and Ancef. The lower extremity was prepped and draped in the usual sterile fashion.The leg was exsanguinated, the tourniquet was raised. A standard anterior incision was performed followed by medial parapatellar arthrotomy was performed. End-stage arthritis was identified. Osteotomy of the patella was performed. We drilled holes for the patella. We trialed the patella component. We placed an intramedullary guide into the distal femur. We ultimately resected 13 mm off of the distal femur in 5 degrees of valgus. The remnants of the ACL and PCL were resected. Osteotomy of the proximal tibia was performed, resecting 5 mm off of the medial side. This was done with 3 degrees of posterior slope using an extramedullary guide. The distal end of the guide was placed in the mid aspect of the ankle. The femur was sized, and four chamfer cuts were completed in 3 of external rotation. We then cut the central box in the distal femur to replace the PCL. We resected the remnants of the menisci and removed osteophytes off of the femur and tibia. We then trialed the knee. We punched the tibia for the keel, and then used standard technique to cement in components. Excess cement was removed. We trialed the knee again and the final polyethylene thickness was chosen to provide extension to 0 degrees, and flexion of 140 degrees to gravity. The ligaments were appropriately balanced. Lateral release was necessary to obtain excellent patellofemoral tracking. The tourniquet was released and adequate hemostasis was obtained. An intra- articular injection of a ropivacaine cocktail was injected. The posterior knee was inspected for excess cement, which was removed. The final polyethylene was put into position after thorough irrigation. We then closed deep fascia with a #2 Stratafix followed by number 1Vlock skin with 2-0 Vicryl followed by Dermabond dressing. Postop plan is to weight-bear as tolerated. DVT prophylaxis will be performed with SCDs, VIKTORIYA manzano, early mobilization, and Lovenox for 4 weeks followed by aspirin for 4 weeks.
[2018-07-31] MEDS ORDERED: fentaNYL Citrate Inj 100 MCG/2 ML Ampul ONE ×2 (10:59→16:49)
[2018-07-31] MEDS ORDERED: HYDROmorphone PF Inj 1 MG/ML Ampul ONE (11:01)
[2018-07-31] MEDS: Sod Chloride 0.9% Inj 1,000 ML IV.CONT SCH (11:30)
--- NOTE | 2018-07-31 11:40 | XR ---
EXAM DATE: 07/31/2018 11:37 AM EST AGE/SEX: 73 years / Female INDICATIONS: Post op left knee CLINICAL DATA: This is the patient's initial encounter. Patient reports that signs and symptoms have been present for 1 day and indicates a pain score of 7/10. MEDICAL/SURGICAL HISTORY: None. Non-responsive. COMPARISON: No prior exams available for comparison. FINDINGS: AP and lateral views of the knee following arthroplasty reveals a prosthesis in anatomic alignment. F racture is not appreciated. Air is present in the joint capsule CONCLUSION: Status post total knee arthroplasty. Hrenandez Garces MD FACR : Electronically signed by: Hernandez Garces MD Board Certified Radiologist 07/31/2018 11:38 AM EST
[2018-07-31] MEDS ORDERED: Gentamicin Consult Pharmacy 1 EACH OTHER SCH (12:00)
[2018-07-31] MEDS: HYDROmorphone PF Inj 1 MG/ML Ampul IV.PUSH PRN ×2 (14:00→18:22)
[2018-07-31] MEDS ORDERED: ceFAZolin Inj 1 GM in Sodium Chlor 0.9% Inj 100 ML IV.SIG SCH (14:30)
[2018-07-31] MEDS: ceFAZolin Inj 1 GM in Sodium Chlor 0.9% Inj 100 ML IV.SIG SCH ×2 (15:00→21:36)
[2018-07-31] MEDS ORDERED: Zolpidem Tartrate 5 MG Tablet PO PRN (21:00)
[2018-07-31] MEDS: Senna/Docusate Sodium 8.6/50 MG Tablet PO SCH (21:35)
[2018-07-31] MEDS: Sulfamethoxazole/Trimethoprim 400/80 MG Tablet PO SCH (21:35)
[2018-07-31] MEDS: Multivitamin/Minerals Therapeutic Tablet PO SCH (21:37)
[2018-08-01] MEDS: ceFAZolin Inj 1 GM in Sodium Chlor 0.9% Inj 100 ML IV.SIG SCH (04:30)
[2018-08-01 05:55] LABS: Hematocrit 30.8 % (35.0-46.0); Hemoglobin 10.8 gm/dL (11.6-15.3)
--- NOTE | 2018-08-01 07:10 | P.PNOP ---
Subjective Interval history: The patient is resting comfortably in bed in no acute distress. The patient does report some increased pain to the left knee postoperatively. The patient states her pain is managed with pain medication. The patient is planning to go to a long term facility ([facility]). Physical Exam Vital signs: Vital Signs 07/31/18 07:35 07/31/18 10:52 07/31/18 11:00 Temperature 97.6 F Pulse Rate 61 88 80 Respiratory Rate 16 16 Blood Pressure 161/69 H 151/71 H Pulse Oximetry 100 95 96 07/31/18 11:15 07/31/18 11:30 07/31/18 11:45 Temperature Pulse Rate 76 74 72 Respiratory Rate 16 16 16 Blood Pressure 162/93 H 166/76 H 141/65 H Pulse Oximetry 95 96 96 07/31/18 12:00 07/31/18 13:00 07/31/18 13:30 Temperature Pulse Rate 62 70 76 Respiratory Rate 16 16 16 Blood Pressure 146/65 H 136/63 142/68 H Pulse Oximetry 96 98 98 07/31/18 16:00 07/31/18 16:08 07/31/18 18:56 Temperature 97 F L Pulse Rate 62 Respiratory Rate 18 18 18 Blood Pressure 110/68 Pulse Oximetry 95 07/31/18 22:05 08/01/18 01:30 08/01/18 05:05 Temperature 97.1 F L 97.3 F L 97.4 F L Pulse Rate 69 62 71 Respiratory Rate 18 17 17 Blood Pressure 124/57 L 122/58 L 122/60 Pulse Oximetry 93 L 94 L 93 L Intake & Output 07/31/18 08/01/18 08/01/18 18:59 06:59 18:59 Intake Total 3459.5 / 3459.5 1680 / 1680 Output Total 100 / 100 Balance 3359.5 / 3359.5 1680 / 1680 Weight 94.8 kg Intake: IV 1459.5 / 1459.5 1200 / 1200 NS Inj 1,000 ML @ 80 mls/hr IV. 1000 / 1000 CONT .[id number] NINO Rx#:[id number] LR 1000 mL Inj 1,000 ML @ 30 1000 / 1000 mls/hr IV.SIG .Q24H NINO Rx#: [id number] Cyklokapron Inj 950 MG In NS 109.5 / 109.5 Inj 100 ML @ 200 mls/hr IV.SIG ONCE NINO Rx#:[id number] Vancomycin Inj 1,000 MG In NS 250 / 250 Inj 250 ML @ 250 mls/hr IV.SIG GAME OPERATOR NINO Rx#:[id number] Ancef Inj 1 GM In NS Inj 100 ML 100 / 100 200 / 200 @ 200 mls/hr IV.SIG Q6H NINO Rx #:[id number] Oral 480 / 480 Anesthesia Amount 1999 Output: Estimated Blood Loss 100 / 100 Other: # Voids 2 1 Date of Last Bowel Movement 07/30/18 07/30/18 # Bowel Movements 0 Narrative: The patient's dressing is clean, dry, and intact. EHL/TA/G are intact. 2+ pedal pulse. The patient's calf is soft and nontender. Sensation is intact to light touch distally. Results - Labs CBC & Chem 7: 08/01/18 04:09 Laboratory Results - last 24 hr 07/31/18 08/01/18 07:05 04:09 Hgb 10.8 L Hct 30.8 L Blood Type O Positive Blood Type Recheck Not needed Antibody Screen Negative - Imaging Impressions Knee X-Ray 07/31/18 10:23 CONCLUSION: Status post total knee arthroplasty. Hernandez Garces MD FACR : - Procedures Left total knee arthroplasty Assessment and Plan - Problem List (1) Status post total knee replacement, left Code(s): Z96.652 - Presence of left artificial knee joint Status: Acute (2) Primary localized osteoarthritis of left knee Code(s): M17.12 - Unilateral primary osteoarthritis, left knee Status: Acute - Assessment and Plan POD #1: Left total knee arthroplasty 1. Weightbearing as tolerated on left lower extremity. 2. Lovenox daily for 4 weeks followed by aspirin 325 mg daily for 4 weeks for DVT prophylaxis. 3. Ice as needed for swelling. 4. Stable per ortho for discharge to [facility] on Sunday if doing well. 5. The patient will follow up with Dr. Jones and/or JULISA Lazaro as previously scheduled.
[2018-08-01] MEDS ORDERED: Dexamethasone Inj 20 MG/5 ML Vial IV.PUSH ONE (08:00)
[2018-08-01] MEDS: Sulfamethoxazole/Trimethoprim 400/80 MG Tablet PO SCH ×2 (09:19→22:10)
[2018-08-01] MEDS: Multivitamin/Minerals Therapeutic Tablet PO SCH ×2 (09:20→22:10)
[2018-08-01] MEDS: Enoxaparin Inj 40 MG/0.4 ML Syringe SQ SCH (09:20)
[2018-08-01] MEDS: Senna/Docusate Sodium 8.6/50 MG Tablet PO SCH ×2 (10:11→22:10)
[2018-08-01] MEDS: Sod Chloride 0.9% Inj 1,000 ML IV.CONT SCH ×2 (12:15→14:57)
[2018-08-02] MEDS: Sod Chloride 0.9% Inj 1,000 ML IV.CONT SCH (08:04)
[2018-08-02] MEDS: Sulfamethoxazole/Trimethoprim 400/80 MG Tablet PO SCH (08:27)
[2018-08-02] MEDS: Multivitamin/Minerals Therapeutic Tablet PO SCH (08:27)
[2018-08-02] MEDS: Senna/Docusate Sodium 8.6/50 MG Tablet PO SCH (08:28)
[2018-08-02 08:37] VITALS: BP 139/63; PULSE 70; RESP 14; TEMP 97.6; O2SAT 97
[2018-08-02 08:39] LABS: Hematocrit 31.1 % (35.0-46.0); Hemoglobin 10.8 gm/dL (11.6-15.3)
[2018-08-02] MEDS: Enoxaparin Inj 40 MG/0.4 ML Syringe SQ SCH (09:44)
--- NOTE | 2018-08-02 16:10 | P.DS ---
Date of admission: 07/31/18 05:46 Primary care physician: Petra Winslow MD Attending physician on discharge: Josue Jones Anticipated date of discharge: 08/02/18 Brief History from admission: The patient was admitted to the hospital for severe OA of the left knee to have a left TKA. DS: Diagnosis - Discharge Diagnosis (1) Status post total knee replacement, left Status: Acute (2) Primary localized osteoarthritis of left knee Status: Acute DS: Medications - Discharge Medications Prescriptions: aspirin 325 mg PO DAILY 30 Days #30 tab enoxaparin [Lovenox] 40 mg SUB-Q DAILY 28 Days #28 units hydrocodone-acetaminophen [[place]] 1 - 2 tab PO Q4-6H #50 tab DS: Summary Hospital Course: The patient was admitted to the hospital for severe osteoarthritis of the [left ] knee to have a [left] total knee arthroplasty. The patient's surgery went well with no complication. The patient is on a [regular] diet. The patient's DVT prophylaxis includes use of [Lovenox 40 mg daily for 30 days and then ASA 325 mg PO daily for 30 days]. The patient is weightbearing as tolerated. The patient was discharged [to [facility]] and will follow up in the office with Dr. Jones and/or JULISA Lazaro as previously scheduled. - Time Spent with Patient Total time spent providing and/or coordinating discharge services: Greater than 30 minutes - Quality: VTE Deep Vein Thrombosis/Pulmonary Embolism Present on Admission: Yes Exam Vital signs: Vital Signs 08/01/18 20:25 08/01/18 22:09 08/02/18 00:10 Temperature 97.9 F 97.9 F Pulse Rate 74 73 Respiratory Rate 18 18 18 Blood Pressure 138/64 133/59 L Pulse Oximetry 92 L 93 L 08/02/18 02:03 08/02/18 08:00 Temperature 97.6 F Pulse Rate 70 Respiratory Rate 16 14 Blood Pressure 139/63 Pulse Oximetry 97 Intake & Output 08/01/18 08/02/18 08/02/18 18:59 06:59 18:59 Intake Total 780 / 780 Balance 780 / 780 Weight 94.5 kg Intake: Oral 780 / 780 Other: # Voids 2 6 # Incontinent Voids 2 Date of Last Bowel Movement 01/08/19 01/11/19 01/11/19 # Bowel Movements 3 # Incontinent Bowel Movements 3 Narrative: The patient's dressing is clean, dry, and intact. EHL/TA/G are intact. 2+ pedal pulse. The patient's calf is soft and nontender. Sensation is intact to light touch distally. Results Procedures completed during hospitalization: Left total knee arthroplasty Labs on day of discharge: Labs from last 24 hours 08/02/18 08:13 Hgb 10.8 L Hct 31.1 L - Impressions ITS Impressions Knee X-Ray 07/31/18 10:23 CONCLUSION: Status post total knee arthroplasty. Hernandez Garces MD FACR : Discharge Plan - Discharge Disposition Patient Disposition: 03 Discharge to SNF - Discharge Condition Condition: Stable - Discharge Order Discharge Orders: Discharge Order (Routine); Ordered 07/31/18 Ordered By: Dell Avila - Discharge Details Anticipated Discharge Date: 08/02/18 - Physicians Team Primary Care Provider: Petra Winslow Attending Provider: Josue Jones - Rxs /Orders / Referrals /Forms Prescriptions: New aspirin 325 mg Tablet 325 mg PO DAILY 30 Days Qty: 30 RF: 0 enoxaparin [Lovenox] 40 mg/0.4 mL Syringe 40 mg SUB-Q DAILY 28 Days Qty: 28 RF: 0 hydrocodone-acetaminophen [[place]] 5-325 mg Tablet 1 - 2 tab PO Q4-6H Qty: 50 RF: 0 Continue ascorbic acid (vitamin C) [Vitamin C] 1,000 mg Tablet 500 mg PO DAILY cholecalciferol (vitamin D3) [Vitamin D3] 1,000 unit Tablet 1,000 unit PO DAILY Thyroid (T4:T3) mcg PO DAILY Discontinued [id number] K [Adults Multivitamin] 18 mg iron-400 mcg-25 mcg Tablet 1 tab PO DAILY vitamin E 400 unit Capsule 400 unit PO DAILY Ambulatory Orders / Order Sets / DME: Adjustable Commode 3-in-1 (1 each) (Routine) Location: Determined by Patient Ordered By: Dell Avila CPM - Continuous Passive Motion Machine (1 each) (Routine) Location: Determined by Patient Ordered By: Dell Avila Walker With Front Wheels (1 each) (Routine) Location: Determined by Patient Ordered By: Dell Avila Referrals: Josue Jones MD [Physician] - See Instructions (f/u in the office with Dr. Jones or Eduardo Avila APRN as previously scheduled) Petra Winslow MD [Primary Care Provider] - See Instructions - Discharge Instructions Patient Printed Instructions: Hydrocodone/Acetaminophen (By mouth), Enoxaparin (By injection), Knee Replacement (DC) Additional Instructions: Rx for [place] 5/325mg (50), Lovenox 40mg/o.4mL (28), Aspirin 325mg (30) given at time of discharge. Take medications as prescribed.
== END 2018-08-02 13:34 | DRG 470 ==
LOC: HSDI 05:46 → N06 14:22
PROVIDERS: ADMIT Orthopaedic Surgery; ATTEND Orthopaedic Surgery
CPT/HCPCS: 73560; 85014; 85018; 86850; 86900; 86901; 94150; 97110; 97116; 97150; 97162; 97166; C1776; J0171; J0690; J0735; J1100; J1170; J1650; J1885; J2250; J2795; J3010; J3370; J7030; J7050; J7120; L1830